=== PATIENT | male | born 1950 | race Caucasian/White ===

== ENCOUNTER 2018-09-21 05:54 | Day surgery (SDC) | payer MEDICARE, BC ==
[~2018-09-21] VITALS: Ht 182.9 cm; Wt 74.8 kg
[2018-09-21] VITALS (8 sets, daily range): BP systolic 96–126; BP diastolic 55–75
[2018-09-21] MEDS ORDERED: CRESTOR20 MG ORAL (06:29)
[2018-09-21] MEDS ORDERED: CARDIZEM CD240 MG ORAL (06:29)
[2018-09-21] MEDS ORDERED: CYMBALTA60 MG ORAL (06:29)
[2018-09-21] MEDS ORDERED: AMBIEN10 M1 ORAL (06:29)
[2018-09-21] MEDS ORDERED: BACLOFEN10 MG ORAL (06:29)
[2018-09-21] MEDS ORDERED: LOTENSIN40 MG ORAL (06:29)
[2018-09-21] MEDS ORDERED: LYRICA75 M1 ORAL (06:29)
--- NOTE | 2018-09-21 07:00 | Anethesia Preoperative Eval ---
Anesthesia Pre-op PMH/ROS General Date of Evaluation: Sep 21, 2018 Anesthesiologist: Wilder ASA Score: ASA 3 Mallampati Score Class I : Soft palate, uvula, fauces, pillars visible Class II: Soft palate, uvula, fauces visible Class III: Soft palate, base of uvula visible Class IV: Only hard plate visible Mallampati Classification: Class III Surgeon: Maximiliano Diagnosis: Left knee medial meniscus tear Surgical Procedure: Left knee arthroscopy, medial meniscectomy Anesthesia History: none Family History: no anesthesia problems Allergies: Coded Allergies: No Known Allergies (Unverified , 09/21/18) Medications: see eMAR Patient NPO?: Yes NPO Date: Sep 20, 2018 NPO Time: 22:00 Past Medical History Cardiovascular: Reports: HTN, other - HLD; Denies: CAD, NE, valve dz, arrhythmia Pulmonary: Denies: asthma, COPD, HERNAN, other Gastrointestinal/Genitourinary: Denies: GERD, CRI, ESRD, other Neurologic/Psychiatric: Reports: depression/anxiety, other - central cord syndrome with bilateral upper and lower extremity weakness; Denies: dementia, CVA, TIA Endocrine: Denies: DM, hypothyroidism, steroids, other HEENT: Denies: cataract (L), cataract (R), glaucoma, TORRES MARTINEZ (L), TORRES MARTINEZ (R), other Hematology/Immune: Denies: anemia, DVT, bleeding disorder, other Musculoskeletal/Integumentary: Reports: OA; Denies: RA, DJD, DDD, edema, other PSxH Narrative: ACDF C3-7 Anesthesia Pre-op Phys. Exam Physician Exam Last Vital Signs Date Time Temp Pulse Resp B/P (MAP) Pulse Ox O2 Delivery O2 Flow Rate FiO2 09/21/18 06:29 Room Air 09/21/18 06:25 97.0 59 18 126/75 99 Constitutional: NAD Cardiovascular: RRR Respiratory: CTA Airway Exam Mallampati Score: Class III MO: limited ROM: limited Anesthesia Pre-op A/P Labs Hematology Test 09/21/18 06:50 White Blood Count Pending Red Blood Count Pending Hemoglobin Pending Hematocrit Pending Mean Corpuscular Volume Pending Mean Corpuscular Hemoglobin Pending Mean Corpuscular Hemoglobin Concent Pending Red Cell Distribution Width Pending Platelet Count Pending Mean Platelet Volume Pending Neutrophils (%) (Auto) Pending Lymphocytes (%) (Auto) Pending Monocytes (%) (Auto) Pending Eosinophils (%) (Auto) Pending Basophils (%) (Auto) Pending Chemistry Test 09/21/18 06:50 Sodium Level Pending Potassium Level Pending Chloride Level Pending Carbon Dioxide Level Pending Blood Urea Nitrogen Pending Creatinine Pending Estimat Glomerular Filtration Rate Pending Glucose Level Pending Calcium Level Pending Studies Pre-op Studies: EKG - sr Risk Assessment & Plan Assessment: ASA III Plan: GA Status Change Before Surgery: No Pre-Antibiotics Drug: Federica Wells MD Sep 21, 2018 07:00
[2018-09-21] MEDS ORDERED: LR 1000ml 1,000 ML IVLG SCH (07:04)
[2018-09-21 07:05] LABS: BASOPHILS % (AUTO) 1.2 % (0.0-2.0); HEMATOCRIT 37.5 % (42.0-52.0); HEMOGLOBIN 12.2 G/DL (14.2-18.0); LYMPHOCYTES % (AUTO) 31.7 % (20.0-45.0); MEAN CORPUSCULAR VOLUME 94 FL (80-99); MONOCYTES % (AUTO) 8.5 % (1.0-10.0); NEUTROPHILS % (AUTO) 55.6 % (45.0-75.0); PLATELET COUNT 162 K/UL (150-450); RED BLOOD COUNT 3.99 M/UL (4.70-6.10); RED CELL DISTRIBUTION WIDTH 13.1 % (11.6-14.8); WHITE BLOOD COUNT 6.4 K/UL (4.8-10.8)
[2018-09-21] MEDS ORDERED: EPINEPHrine 1mg/1ml Amp ONE (07:14)
[2018-09-21] MEDS ORDERED: Bupivacaine 0.25% Inj 30ml INJ ONE (07:14)
[2018-09-21] MEDS ORDERED: Metoclopramide 10mg/2ml Inj IVP PRN (07:15)
[2018-09-21] MEDS ORDERED: Midazolam 2mg/2ml Inj IVP PRN (07:15)
[2018-09-21] MEDS ORDERED: Hydromorphone 0.5mg/0.5ml inj IVP PRN (07:15)
[2018-09-21] MEDS ORDERED: fentaNYL 100 mcg/2 mL IV PRN (07:15)
[2018-09-21] MEDS ORDERED: LORazepam Inj 2mg/ml 1ml IV PRN (07:15)
[2018-09-21] MEDS ORDERED: DiphenhydrAMINE 50mg/ml Inj IVP PRN (07:15)
--- NOTE | 2018-09-21 07:21 | Pre-Procedure Note/Attestation ---
Pre-Procedure Note/Attestation Complete Prior to Procedure Planned Procedure: left Procedure Narrative: Left knee arthroscopy with partial menisectomy Indications for Procedure Pre-Operative Diagnosis: Left knee meniscus tear Attestation I attest that I discussed the nature of the procedure; its benefits; risks and complications; and alternatives (and the risks and benefits of such alternatives ), prior to the procedure, with the patient (or the patient's legal technology sales representative). I attest that, if there was a reasonable possibility of needing a blood transfusion, the patient (or the patient's legal technology sales representative) was given the [facility] standardized written summary, pursuant to the [employer]oco Kurt[employer] Blood Safety Act ([place] Health and Safety Code # 1645, as amended). I attest that I re-evaluated the patient just prior to the surgery and that there has been no change in the patient's H&P, except as documented below: Adrien Viera MD Sep 21, 2018 07:21
[2018-09-21] MEDS ORDERED: NS Irrig 4000ml IRRIG ONE (07:28)
[2018-09-21] MEDS ORDERED: Tylenol #3 tab (300mg/30mg) ORAL PRN (07:30)
[2018-09-21] MEDS ORDERED: Propofol 200mg/20ml IV ONE (07:30)
[2018-09-21] MEDS ORDERED: D5 1/2NS 1,000 ML IV SCH (07:30)
[2018-09-21] MEDS ORDERED: Lidocaine 1% MPF 10mg/ml 5ml ONE (07:30)
[2018-09-21] MEDS ORDERED: LR 1000ml ONE (07:30)
[2018-09-21] MEDS ORDERED: Midazolam 2mg/2ml Inj ONE (07:30)
[2018-09-21] MEDS ORDERED: HYDROcodone/Acetamin 5/325 tab ORAL PRN (07:30)
[2018-09-21] MEDS ORDERED: Sterile Water Irrig 1000ml IRRIG ONE (07:30)
[2018-09-21] MEDS ORDERED: NS Irrig 2000ml IRRIG ONE (07:30)
[2018-09-21] MEDS ORDERED: fentaNYL 100 mcg/2 mL IV ONE (07:30)
[2018-09-21] MEDS ORDERED: HYDROmorphone 1mg/ml Carpuject SUBQ PRN (07:30)
[2018-09-21 07:41] LABS: ANION GAP 8 mmol/L (5-15); BLOOD UREA NITROGEN 33 mg/dL (7-18); CALCIUM 9.4 MG/DL (8.5-10.1); CARBON DIOXIDE 28 MMOL/L (21-32); CHLORIDE 105 MMOL/L (98-107); POTASSIUM 4.2 MMOL/L (3.5-5.1); SODIUM 141 MMOL/L (136-145)
--- NOTE | 2018-09-21 08:22 | Brief Operative Note ---
Immediate Post Operative Note Operative Note Pre-op Diagnosis: Left knee meniscus tear Procedure: Left knee arthroscopy with partial menisectomy and medial compartment debridement with plica resection Post-op Diagnosis: Left knee meniscus tear Post-op Diagnosis: same as pre-op Findings: consistent w/pre-op dx studies Electronic Industrial Controls Mechanic: Maximiliano Anesthesiologist: Wilder Anesthesia: general Specimen: yes Complications: none Condition: stable Fluids: 100 ml Estimated Blood Loss: none Drains: none Implant(s) used?: No Adrien Viera MD Sep 21, 2018 08:22
--- NOTE | 2018-09-21 08:26 | 48 Hour Post Anesthesia Eval ---
Post Anesthesia Evaluation Procedure: Left knee arthroscopy with medial meniscectomy Airway: patent Nausea: No Vomiting: No Pain Intensity: 0 Hydration Status: adequate Cardiopulmonary Status: at baseline Mental Status/LOC: patient returned to baseline Post-Anesthesia Complications: 0 Follow-up care needed: ready to discharge Federica Montez MD Sep 21, 2018 08:26
--- NOTE | 2018-09-21 08:26 | Immediate Post-Op Evaluation ---
Immediate Post-Op Evalulation Immediate Post-Op Evalulation Procedure: Left knee arthroscopy with medial meniscectomy Date of Evaluation: Sep 21, 2018 Time of Evaluation: 08:27 IV Fluids: 800 Blood Products: 0 Estimated Blood Loss: min Urinary Output: 0 Blood Pressure Systolic: 105 Blood Pressure Diastolic: 57 Pulse Rate: 66 Respiratory Rate: 16 O2 Sat by Pulse Oximetry: 99 Temperature (Fahrenheit): 97.9 Pain Score (1-10): 0 Nausea: No Vomiting: No Complications 0 Patient Status: awake, reacts, patent, none Hydration Status: adequate Drug: Ancef 1g Given Within 1 Hr of Incision: Yes Federica Montez MD Sep 21, 2018 08:26
--- NOTE | 2018-09-21 17:00 | Operative Note - Dictated ---
DATE OF OPERATION: 09/21/2018 SURGEON: Adrien Viera M.D. BIOMEDICAL ENGINEERING DIRECTOR: None. ANESTHESIA: General plus local. COMPLICATIONS: None. ANTIBIOTICS: Ancef. PREOPERATIVE DIAGNOSES: Left knee: 1. Medial meniscus tear. 2. Medial compartment chondrosis. 3. Medial gutter plica. POSTOPERATIVE DIAGNOSES: Left knee: 1. Medial meniscus tear. 2. Medial compartment chondrosis. 3. Medial gutter plica. PROCEDURE PERFORMED: Left knee arthroscopy with: 1. Partial medial meniscectomy. 2. Medial compartment chondroplasty. 3. Medial plica resection. BACKGROUND: The patient has had longstanding left knee pain refractory to nonoperative management. Risks included, but were not limited to, bleeding, infection, neurovascular injury, need for additional surgical intervention, failure of pain relief, arthrofibrosis, complications of anesthesia, blood clots, stroke, heart attack, and potentially . He understood these risks, amongst others, and consent was signed. PROCEDURE IN DETAIL: The patient was brought to the operating room, placed supine on the operating table. The left knee was correctly verified for surgical site and prepped and draped in standard sterile fashion. Examination under anesthesia revealed symmetric range of motion of the contralateral knee, no laxity, and no effusion. Anterolateral and anteromedial portals were marked and injected with 20 mL of 0.25% Marcaine with epinephrine. A diagnostic arthroscopy was then undertaken. It revealed the followin. Normal suprapatellar pouch. 2. Medial gutter plica. 3. Normal lateral gutter. 4. Normal lateral compartment. 5. Minimal degenerative changes, lateral meniscus. 6. Normal ACL. 7. Normal PCL. 8. Grade 3 chondrosis, medial femoral condyle (lateral aspect). 9. Large complex macerated tear of posterior and middle horn medial meniscus. The meniscal tear was resected using an up biter, left biter, repair, and contoured with a 4.5 mm shaver. It was tested with a probe after resection and found to be stable. A chondroplasty was performed on the loose edges of the medial compartment chondrosis. The plica was resected using the shaver as well. All fluid and debris were evacuated from the knee. A 10 mL of 25% Marcaine with epinephrine were injected. The wounds were copiously irrigated and reapproximated using 4-0 Monocryl in subcuticular fashion. Steri-Strips were used over Mastisol. Dry sterile dressing was applied. A compressive stocking was fitted. There were no complications. I attest I performed the entire operation. He was transferred to recovery in good condition. Adrien Viera M.D. DR: MARTHA JOB#: [id number] CC:
== END 2018-09-21 09:15 | disposition home or self-care (01) ==
LOC: SDS 05:54
DX: S83.242A Other tear of medial meniscus, current injury, left knee, initial encounter (principal); M24.10 Other articular cartilage disorders, unspecified site; M67.52 Plica syndrome, left knee; I10 Essential (primary) hypertension; E78.5 Hyperlipidemia, unspecified; F32.9 Major depressive disorder, single episode, unspecified; F41.9 Anxiety disorder, unspecified; M19.90 Unspecified osteoarthritis, unspecified site; X58.XXXA Exposure to other specified factors, initial encounter; Y92.9 Unspecified place or not applicable; Z98.1 Arthrodesis status; E78.00 Pure hypercholesterolemia, unspecified; K57.90 Diverticulosis of intestine, part unspecified, without perforation or abscess without bleeding; Z87.891 Personal history of nicotine dependence; I25.10 Atherosclerotic heart disease of native coronary artery without angina pectoris; M17.12 Unilateral primary osteoarthritis, left knee; R25.2 Cramp and spasm; G83.9 Paralytic syndrome, unspecified
CPT/HCPCS: 29881; 36415; 80048; 85025; J0171; J0690; J2250; J2704; J3010; J3490; 94003; 94150